=== PATIENT | female | born 1960 | race African-American/Black ===

== ENCOUNTER 2018-11-14 10:05 | Outpatient (CLI) | payer OTHER ==
--- NOTE | 2018-11-15 08:52 | Mammography Report ---
BILATERAL DIGITAL SCREENING MAMMOGRAM WITH CAD INDICATION: Screening. COMPARISONS: None available. FINDINGS: Craniocaudal and mediolateral oblique views of both breasts were obtained using 2-D digital acquisition. In addition to standard review, the examination was analyzed for possible abnormalities using a computer-assisted detection device (iCAD). The breast tissue is heterogeneously dense, which may obscure small masses. Right retroareolar asymmetries on both views requires additional imaging. No architectural distortion or suspicious calcifications. The left breast is negative. IMPRESSION: Right asymmetries requiring additional imaging. Recommend recall for right lateral and spot magnifica tion MLO and CC views and right breast ultrasound if needed. BI-RADS CATEGORY 0: INCOMPLETE - NEED ADDITIONAL IMAGING EVALUATION AND/OR PRIOR MAMMOGRAMS FOR COMP ARISON Information is entered into a reminder system for a target due date for the next mammogram. The resul ts and recommendations were sent to the patient by mail. Signer Name: Arthur Da Silva MD Signed: 11/15/2018 8:47 AM Workstation Name: [id number]
== END 2018-11-14 10:06 | disposition home or self-care (01) ==
LOC: SPVWC 10:05
PROVIDERS: ATTEND Hospitalist
DX: Z12.31 Encounter for screening mammogram for malignant neoplasm of breast (principal)
CPT/HCPCS: 77067

== ENCOUNTER 2018-11-27 14:24 | Outpatient (CLI) | payer OTHER ==
--- NOTE | 2018-11-27 15:34 | Mammography Report ---
RIGHT DIGITAL DIAGNOSTIC MAMMOGRAM INDICATION: Recalled for asymmetries. TECHNIQUE: Digital right mammographic imaging was performed. COMPARISON: 11/14/2018 FINDINGS: Breast Density: The breast is heterogeneously dense, which may obscure small masses. There is no evidence of dominant mass, suspicious calcifications or architectural distortion in the l eft breast. IMPRESSION: No mammographic evidence of malignancy. BI-RADS Category 1: Negative. Recommend routine screening mammography in one year. A "normal" or negative report should not discourage follow up or biopsy of a clinically significant f inding. A written summary of these findings will be mailed to the patient. The patient will be entered into a mammography reporting system which will generate a reminder letter for the patient's next appointmen t at the appropriate interval. FURTHER INFORMATION: According to the [employer], yearly mammograms are recommend ed starting at age 40 and continuing as long as a woman is in good health. Breast MRI is recommended for women with an approximately 20-25% or greater lifetime risk of breast cancer, including women wi th a strong family history of breast or ovarian cancer and women who have been treated for Hodgkin's disease. Signer Name: Arthur Da Silva MD Signed: 11/27/2018 3:30 PM Workstation Name: [id number]
== END 2018-11-27 14:25 | disposition home or self-care (01) ==
LOC: SPVWC 14:24
PROVIDERS: ATTEND Hospitalist
DX: R92.8 Other abnormal and inconclusive findings on diagnostic imaging of breast (principal)